=== PATIENT | female | born 1995 | race Caucasian/White ===

== ENCOUNTER 2017-01-11 20:27 | Emergency (ER) | payer OTHER ==
[2017-01-11 20:48] VITALS: RESP 16; O2SAT 97
--- NOTE | 2017-01-11 22:04 | EDPHY ---
H & P Stated Complaint: BRITTON Time Seen by Provider: 01/11/17 21:43 HPI/ROS: Chief Complaint: Headache HPI: 21-year-old female presenting with 24 hours of headache. Patient has been having intermittent headaches for the last week. It was gradual in onset. At worst is a 7/10. These began after she had the upper respiratory type symptoms a couple weeks ago. She has had some photophobia. No nausea or vomiting. No neck pain or stiffness. No fevers or chills. Pain is behind both of her eyes in the back of her head. It is not the worst headache of her life. Is not sudden onset. She has not had any recent falls or trauma. She is not drink caffeine. She is wearing her contact lenses not had any vision straining. She is a college student. Does have a family history of migraine headaches in her father. Last menstrual period was 2 weeks ago. She has never been . ROS: 10 point Review of Systems is negative except as noted in the HPI. PMH: Denies Medications: Oral contraceptives Allergies: No known drug allergies Social History: No smoking, occasional alcohol, no recreational drug use Family History: non-contributory Physical Exam: Gen: Awake, Alert, No Distress HEENT: She has sinus tenderness to percussion over the bilateral frontal sinuses with mild left greater than right maxillary sinus tenderness to percussion reproducing her presenting complaint. Nose: no rhinorrhea Eyes: PERRLA, EOMI Mouth: Moist mucosa Neck: Supple, no JVD, no meningismus Chest: nontender, lungs clear to auscultation Heart: S1, S2 normal, no murmur Abd: Soft, non-tender, no guarding Back: no CVA tenderness, no midline tenderness Ext: no edema, non-tender Skin: no rash Neuro: CN II-XII intact, Sensation grossly intact, Strength 5/5 in bilateral upper and lower extremities - Personal History LMP (Females 10-55): 8-14 Days Ago Current Tetanus/Diphtheria Vaccine: Yes Current Tetanus Diphtheria and Acellular Pertussis (TDAP): Yes - Medical/Surgical History Hx Asthma: Yes Hx Chronic Respiratory Disease: No Hx Diabetes: No Hx Cardiac Disease: No Hx Renal Disease: No Hx Cirrhosis: No Hx Alcoholism: No Hx HIV/AIDS: No Hx Splenectomy or Spleen Trauma: No Other PMH: asthma, concussions x2 2012, - Social History Smoking Status: Never smoked Constitutional: Initial Vital Signs Temperature (C) 36.9 C 01/11/17 20:45 Heart Rate 70 01/11/17 20:45 Respiratory Rate 16 01/11/17 20:45 Blood Pressure 128/72 H 01/11/17 20:45 O2 Sat (%) 97 01/11/17 20:45 O2 Delivery Mode Room Air Allergies/Adverse Reactions: No Known Allergies Allergy (Unverified 01/11/17 20:44) Home Medications: Medication Instructions Recorded Drospir/Eth Estra/Levomefol Ca 1 each PO DAILY 07/29/14 [Beyaz 28 Tablet] Medical Decision Making ED Course/Re-evaluation: 21-year-old with headache, symptoms are more consistent with a sinusitis then migraine. She has since percussion. No recent upper respiratory illness. The location of the headache is more consistent with sinusitis as well. She is certainly not toxic appearing. No historical factor suggestive intracranial bleed or infection. I have instructed her to start using Flonase, oral over-the -counter decongestants fine. Alternate ibuprofen with acetaminophen, make sure to drink plenty of fluids. Follow up with [facility] in about a week if symptoms are not improving. Departure - Departure Disposition: Home, Routine, Self-Care Clinical Impression: Sinusitis Condition: Good Instructions: Rhinosinusitis (ED) Additional Instructions: Start using Flonase daily according to package instructions. This is available [id number]. You may use [id number] cold medicines with a decongestant per package instructions. Alternate ibuprofen 400 mg with acetaminophen 1000 mg every 4 hours as needed for fevers, chills, aches or pains. Follow up at [facility] in about a week for recheck. Return emergency depart for increasing headache, fevers, chills, neck stiffness , uncontrolled nausea vomiting, or any other concerns. Referrals: AUGUSTO Bradshaw,. [Clinic] - As per Instructions
[2017-01-11] MEDS ORDERED: IBUPROFEN 600 MG TAB PO ONE ×2 (22:14)
[2017-01-11 22:32] VITALS: BP 119/65; PULSE 67; TEMP 98.1
== END 2017-01-11 22:31 | disposition home or self-care (01) ==
DX: J32.9 Chronic sinusitis, unspecified (principal); J45.909 Unspecified asthma, uncomplicated

== ENCOUNTER 2017-06-03 23:11 | Emergency (ER) | payer OTHER ==
--- NOTE | 2017-06-03 23:59 | EDPHY ---
H & P Stated Complaint: HIVES FACE AND ARM, NO RESP, ZYRTEC PHOTOGRAPHER FINISH HPI/ROS: HPI CHIEF COMPLAINT: Allergic reaction, hives (minimal) HISTORY OF PRESENT ILLNESS: This patient very pleasant 21-year-old female she is otherwise healthy does have allergic reaction and allergies to dust, she presents emergency room stating that approximately an hour ago she started itching while she was getting a shower in her left arm. She noticed some hives to the posterior aspect of her left arm. She then noticed some hives on her face. She took Zyrtec prior to arrival she decided come the emergency room as she felt anxious and felt lightheaded and felt like her throat was closing. She had no trouble swallowing or breathing. Denies chest pain or shortness of breath. Denies nausea vomiting or diarrhea. Upon arrival to the emergency room if years very well nontoxic in no acute distress. There is a small area of hives to left posterior upper arm, and some hives to her left face. Her posterior pharynx is normal. No history of anaphylaxis or intubation. Past Medical History: No significant medical Past Surgical History: No significant surgical history Social History: Denies drugs alcohol tobacco. [employer] student. Family History: Noncontributory ROS REVIEW OF SYSTEMS: A comprehensive 10 point review of systems is otherwise negative aside from elements mentioned in the history of present illness. Exam Constitutional appears well nontoxic triage nursing summary reviewed, vital signs reviewed, awake/alert. Eyes normal conjunctivae and sclera, EOMI, PERRLA. HENT no stridor, posterior pharynx normal, tongue normal, normal inspection, atraumatic, moist mucus membranes, no epistaxis, neck supple/ no meningismus, no raccoon eyes. Respiratory clear to auscultation bilaterally, normal breath sounds, no respiratory distress, no wheezing. Cardiovascular rate normal, regular rhythm, no murmur, no edema, distal pulses normal. Gastrointestinal soft, non-tender, no rebound, no guarding, normal bowel sounds, no distension, no pulsatile mass. Genitourinary no CVA tenderness. Musculoskeletal no midline vertebral tenderness, full range of motion, no calf swelling, no tenderness of extremities, no meningismus, good pulses, neurovascularly intact. Skin small area of 5 to the posterior left upper arm, additionally small area of erythema race skin to left face. Otherwise unremarkable Neurologic awake, alert and oriented x 3, AAOx3, moves all 4 extremities equally, motor intact, sensory intact, CN II-XII intact, normal cerebellar, normal vision, normal speech. Psychiatric normal mood/affect. Heme/Lymph/Immune no lymphadenopathy. Differential Diagnosis: Includes but is not limited to in a particular order acute allergic reaction, anaphylaxis, mild allergy Medical Decision Making: Plan for this patient this patient appears very well nontoxic with stable vital signs no evidence anaphylaxis, in no acute distress. Appears well no respiratory symptoms. Will give a dose of p.o. prednisone, Pepcid and Benadryl. Will observe here. Re-evaluate. Re-evaluation: [id number]: Patient has been reassessed. She is resting comfortably in no acute distress. No evidence of further signs of allergic reaction here. She has had no progression. She denies shortness of breath or trouble swallowing. She has been resting. No vomiting. No chest pain or shortness of breath The lesions on her left posterior arm and face have not really increased in size. This been no progression of urticaria. Went over return precautions with her. She understands return emergency room if develops worsening symptoms includes worsening rash, fever, vomiting trouble swallowing trouble breathing. Prednisone, Pepcid, Benadryl for 3 days. Return if worse. Source: Patient - Personal History LMP (Females 10-55): 1-7 Days Ago Current Tetanus/Diphtheria Vaccine: Yes - Medical/Surgical History Hx Asthma: Yes Hx Chronic Respiratory Disease: No Hx Diabetes: No Hx Cardiac Disease: No Hx Renal Disease: No Hx Cirrhosis: No Hx Alcoholism: No Hx HIV/AIDS: No Hx Splenectomy or Spleen Trauma: No Other PMH: asthma, concussions x2 2012 - Social History Smoking Status: Never smoked Constitutional: Initial Vital Signs Temperature (C) 36.9 C 06/03/17 23:22 Heart Rate 80 06/03/17 23:22 Respiratory Rate 18 06/03/17 23:22 Blood Pressure 132/82 H 06/03/17 23:22 O2 Sat (%) 98 06/03/17 23:22 O2 Delivery Mode Room Air Allergies/Adverse Reactions: No Known Allergies Allergy (Unverified 06/03/17 23:21) Home Medications: Medication Instructions Recorded Drospir/Eth Estra/Levomefol Ca 1 each PO DAILY 07/29/14 [Beyaz 28 Tablet] Famotidine [Pepcid 20 MG (*)] 20 mg PO BID #6 tab 06/04/17 diphenhydrAMINE [Benadryl 25 MG 25 mg PO BID #6 tab 06/04/17 (*)] predniSONE 60 mg PO DAILY #9 tab 06/04/17 Medical Decision Making - Data Points Medications Given: Discontinued Medications Diphenhydramine HCl (Benadryl) 50 mg PO EDNOW ONE Stop: 06/04/17 00:04 Last Admin: 06/04/17 00:13 Dose: 50 mg Famotidine (Pepcid) 20 mg PO EDNOW ONE Stop: 06/04/17 00:04 Last Admin: 06/04/17 00:13 Dose: 20 mg Prednisone (Prednisone) 60 mg PO EDNOW ONE Stop: 06/04/17 00:04 Last Admin: 06/04/17 00:12 Dose: 60 mg Departure - Departure Disposition: Home, Routine, Self-Care Clinical Impression: Allergic reaction Qualifiers: Encounter type: initial encounter Qualified Code(s): T78.40XA - Allergy, unspecified, initial encounter Condition: Good Instructions: Urticaria (ED) Additional Instructions: 1. Return emergency room if you have any worsening signs of allergic reaction. Referrals: NONE *PRIMARY CARE P,. [Primary Care Provider] - As per Instructions Prescriptions: diphenhydrAMINE [Benadryl 25 MG (*)] 25 mg PO BID #6 tab Famotidine [Pepcid 20 MG (*)] 20 mg PO BID #6 tab predniSONE 60 mg PO DAILY #9 tab
[2017-06-04] MEDS ORDERED: diphenhydrAMINE 25 MG CAP PO ONE (00:03)
[2017-06-04] MEDS ORDERED: predniSONE 20 MG TAB PO ONE (00:03)
[2017-06-04] MEDS ORDERED: FAMOTIDINE 20 MG TAB PO ONE (00:03)
[2017-06-04 00:17] VITALS: TEMP 98.1; O2SAT 96
[2017-06-04 01:53] VITALS: BP 107/74; PULSE 85; RESP 16
== END 2017-06-04 01:52 | disposition home or self-care (01) ==
DX: J30.89 Other allergic rhinitis (principal); T78.40XA Allergy, unspecified, initial encounter
CPT/HCPCS: J7512

== ENCOUNTER 2017-06-18 20:08 | Emergency (ER) | payer OTHER ==
[2017-06-18 20:13] VITALS: BP 132/85; PULSE 73; RESP 20; TEMP 98.2; O2SAT 97
[2017-06-18] MEDS ORDERED: FLUORESCEIN SODIUM 1 MG STRIP OP ONE (20:19)
[2017-06-18] MEDS ORDERED: PROPARACAINE 0.5% 15 ML OPHT DROP OP ONE (20:19)
--- NOTE | 2017-06-18 20:25 | EDPHY ---
General - History Smoking Status: Never smoked Time Seen by Provider: 06/18/17 20:19 Narrative: CHIEF COMPLAINT: Right eye "poked with a needle" HISTORY OF PRESENT ILLNESS: Patient complains of right eye discomfort. She was using a [employer] needle to remove blackheads just prior to arrival when she accidentally "stabbed myself in the right eye." She says she did not actually strike her eye but accidentally scraped it to the right upper eyelid. She has discomfort but no changes in her vision. No bleeding. She does not feel that she actually struck the eye itself. It is painful to move the eyelid and improved at rest. She is here primarily because she is concerned that this will be, infected. She has no other associated complaints or modifying factors. Tetanus is up-to- date. She does wear contact lenses. REVIEW OF SYSTEMS: Ten systems reviewed and are negative unless otherwise noted in the HPI PCP: Fiona [facility] SPECIALISTS: None PAST MEDICAL HISTORY: Migraine headaches PAST SURGICAL HISTORY: Denies any surgical history SOCIAL HISTORY: Nonsmoker. Occasional alcohol marijuana use. Originally from [place]. [employer] student FAMILY HISTORY: Noncontributory EXAMINATION General Appearance: Alert, no distress Head: normocephalic, atraumatic Eyes: Pupils equal and round symmetrically. EOMs are intact. Visual miller are intact by confrontation. There is no subconjunctival hemorrhage or hyphema of the right eye. There is no obvious foreign body to the right eye. Ophthalmoscope examination is normal with no evidence of palpable edema. Fluorescein/Hawkins lamp exam: No fluorescein uptake. No branching or dendritic lesions. Cardiovascular: Regular rate. Good signs of perfusion. Neurological: A&O, nonfocal, normal gait Skin: Warm and dry, no rash. No periorbital erythema, laceration or abrasion. DIFFERENTIAL DIAGNOSES: Including but not limited to corneal abrasion, conjunctival abrasion, globe rupture, eyelid laceration, foreign body of the eye MDM: 8:25 p.m. Acute accidental injury to the right eyelid. No signs of trauma to the eye itself with symmetric, round pupil. She has no difficulty with her vision. She does have painful movement of the eyelid. She has normal visual miller by confrontation. Visual acuity will be obtained. I will administer proparacaine and perform a fluorescein exam of the eye. Her tetanus up-to-date she is in no acute distress. 8:55 p.m. I have performed wood lamp examination with fluorescein. I do not appreciate any fluorescein uptake. There is no evidence of ulceration. No evidence of iritis by examination. I do feel she has an abrasion to the eyelid, which is where she struck herself with the needle. I will place her on ofloxacin ophthalmic prophylactic treatment. She is to use or glasses and contact prison keeper tomorrow morning for outpatient care. She is to return to emergency department for any worsening discomfort or any changes in her vision. She is comfortable this plan and discharged in stable condition. SUPERVISION: This patient was independently evaluated without direct involvement of or examination by the attending physician. (Tyrone Griggs) Medical Decision Making: I did not see this patient while she was in the emergency department. However her care was discussed with the PA while the patient was in the department. I agree with treatment plan and management (Bon Trinidad) - Objective Vital Signs: Initial Vital Signs Temperature (C) 36.8 C 06/18/17 20:09 Heart Rate 73 06/18/17 20:09 Respiratory Rate 20 06/18/17 20:09 Blood Pressure 132/85 H 06/18/17 20:09 O2 Sat (%) 97 06/18/17 20:09 O2 Delivery Mode Room Air Allergies/Adverse Reactions: No Known Allergies Allergy (Verified 06/18/17 20:09) Home Medications: Medication Instructions Recorded Drospir/Eth Estra/Levomefol Ca 1 each PO DAILY 07/29/14 [Beyaz 28 Tablet] Famotidine [Pepcid 20 MG (*)] 20 mg PO BID #6 tab 06/04/17 diphenhydrAMINE [Benadryl 25 MG 25 mg PO BID #6 tab 06/04/17 (*)] predniSONE 60 mg PO DAILY #9 tab 06/04/17 Medications Given: Discontinued Medications Fluorescein Sodium (Osxmu-Z-Qcoab) 1 mg OP EDNOW ONE Stop: 06/18/17 20:20 Last Admin: 06/18/17 20:33 Dose: 1 mg Ofloxacin (Ocuflox 0.3% Opht Drops Prepack) 1 btl TAKEHOME EDNOW ONE Stop: 06/18/17 20:42 Last Admin: 06/18/17 21:02 Dose: 1 btl Proparacaine HCl (Alcaine 0.5%) 1 drops OP EDNOW ONE Stop: 06/18/17 20:20 Last Admin: 06/18/17 20:33 Dose: 1 drops Departure - Departure Disposition: Home, Routine, Self-Care Clinical Impression: Abrasion of eyelid, right Qualifiers: Encounter type: initial encounter Qualified Code(s): S00.211A - Abrasion of right eyelid and periocular area, initial encounter Condition: Good Instructions: Ofloxacin (Into the eye), Eye Lubricant (Into the eye), Eye Foreign Body (ED) Additional Instructions: 1. Head ofloxacin, 2 drops into the right eye every 4 hr for the next 2 days. Then 2 drops into the right eye every 6 hr for 5 more days 2. Contact the on-call prison keeper tomorrow morning to be seen on Monday without fail 3. ED precautions as discussed 4. Wear your glasses and not contacts until seen and cleared by Ophthalmology Referrals: Jamaal Villa MD [Medical Doctor] - As per Instructions
[2017-06-18] MEDS ORDERED: OFLOXACIN 0.3% SOLN PREPACK OPHT.BTL TAKEHOME ONE (20:41)
== END 2017-06-18 21:06 | disposition home or self-care (01) ==
DX: S00.211A Abrasion of right eyelid and periocular area, initial encounter (principal); W27.3XXA Contact with needle (sewing), initial encounter; Y93.89 Activity, other specified

== ENCOUNTER 2017-12-14 19:18 | Emergency (ER) | payer OTHER ==
[2017-12-14] MEDS ORDERED: IBUPROFEN 600 MG TAB PO ONE (19:42)
--- NOTE | 2017-12-14 20:05 | EDPHY ---
H & P Time Seen by Provider: 12/14/17 19:48 HPI/ROS: CHIEF COMPLAINT: Left foot pain HISTORY OF PRESENT ILLNESS: Patient is a 89-year-old female presents emergency department left foot pain. The patient swung from a rope swing into the [employer] striking her foot on a rock. She had sudden and significant pain on the left medial aspect of her foot. She also sustained a few small abrasions. Patient states she has had previous ankle surgery. No foot surgery. She has no numbness or tingling. She is unable to walk due to the pain. She sustained no other injury. She has had no numbness or tingling. REVIEW OF SYSTEMS: Negative Past Medical/Surgical History: Previous ankle surgery, asthma, concussion Smoking Status: Never smoked Physical Exam: General Appearance: Alert and no distress. Head: Pupils equal. Normal. Respiratory: No respiratory distress. Cardiac: regular rate and rhythm. Extremities: Patient has mild swelling on the medial aspect of her left foot. There is tenderness palpation. No crepitus. No deformity. Patient has multiple small abrasions on the plantar aspect of her foot. There is no suturable lacerations. Patient also has a small abrasion on the medial aspect the of her 2nd toe. No ankle tenderness. No knee tenderness. Skin: No rashes or lesions. Neuro: Alert. Normal mood and affect. Constitutional: Initial Vital Signs Temperature (C) 37.1 C 12/14/17 19:34 Heart Rate 96 12/14/17 19:34 Respiratory Rate 16 12/14/17 19:34 Blood Pressure 131/86 H 12/14/17 19:34 O2 Sat (%) 95 12/14/17 19:34 O2 Delivery Mode Room Air Allergies/Adverse Reactions: No Known Allergies Allergy (Verified 06/18/17 20:09) Home Medications: Medication Instructions Recorded Drospir/Eth Estra/Levomefol Ca 1 each PO DAILY 07/29/14 [Beyaz 28 Tablet] Medical Decision Making ED Course/Re-evaluation: In the emergency department I discussed possible etiologies with the patient. I answered all her questions. An x-ray of her left foot and ankle were ordered. Foot ankle x-ray: Please refer the dictated report. No acute disease noted. I discussed the result with the patient. I answered all her questions. She was placed in a [place] boot. She is given crutches for comfort. She will follow up with Orthopedics. Differential Diagnosis: My differential includes but is not limited to fracture, dislocation, sprain, strain, contusion, abrasion, laceration, foreign body - Data Points Medications Given: Discontinued Medications Ibuprofen (Motrin) 600 mg PO EDNOW ONE Stop: 12/14/17 19:43 Last Admin: 12/14/17 19:48 Dose: 600 mg Departure - Departure Disposition: Home, Routine, Self-Care Clinical Impression: Foot contusion Qualifiers: Encounter type: initial encounter Laterality: left Qualified Code(s): S90.32XA - Contusion of left foot, initial encounter Condition: Good Instructions: Foot Contusion (ED) Additional Instructions: You need follow-up with Orthopedics. Call tomorrow morning to make an appointment. Use your splint and crutches for comfort. Referrals: Mariam Castillo MD [Medical Doctor] - 5-7 days, call for appt.
[2017-12-14 21:08] VITALS: BP 117/71
== END 2017-12-14 21:07 | disposition home or self-care (01) ==
DX: S90.32XA Contusion of left foot, initial encounter (principal); W22.8XXA Striking against or struck by other objects, initial encounter; Y99.8 Other external cause status; Y92.838 Other recreation area as the place of occurrence of the external cause
CPT/HCPCS: L4386

== ENCOUNTER 2018-10-16 10:30 | Emergency (ER) | payer OTHER | END 2018-10-16 13:06 | disposition home or self-care (01) ==